=== PATIENT | female | born 1930 | race Caucasian/White ===

== ENCOUNTER 2017-07-24 18:15 | Emergency (ER) | payer MEDICARE, MEDICAID ==
--- NOTE | 2017-07-24 18:53 | Emergency Department Record ---
History of Present Illness - General Chief complaint: Facial Swelling Stated complaint: SWOLLEN TONGUE Time Seen by Provider: 07/24/17 18:49 Source: Patient Mode of Arrival: Ambulatory Limitations: No limitations - History of Present Illness Initial Comments: 87 yo female presents to ED for evaluation of tongue swelling for the past 6 hours. Patient reports taking Benadryl 90 minutes ago that has not significantly improved her symptoms. Patient denies previous reaction, denies any new foods or medications. Patient is not taking JAMES-I medications at her baseline. Patient denies throat swelling or difficulty swallowing on examination. MD Complaint: Other (tongue swelling) Onset/Timin -: Hour(s) Exposure: Unknown Symptoms: Orolingual swelling Severity: Mild Treatment Prior to Arrival: Benadryl Previous Allergy History: None - Related Data Previous Rx's Medication Instructions Recorded Famotidine [Pepcid] 40 mg PO DAILY #5 tablet 07/24/17 Prednisone [Prednisone 20Mg] 20 mg PO TID #12 tab 07/24/17 Allergies Allergy/AdvReac Type Severity Reaction Status Date / Time ibuprofen Allergy DIZZINESS Verified 07/24/17 18:37 Travel Screening - Travel/Exposure Within Last 30 Days Have you traveled within the last 30 days?: No - Travel/Exposure Within Last Year Have you traveled outside the [place] in the last year?: No - Additonal Travel Details Have you been exposed to anyone with a communicable illness?: No - Travel Symptoms Symptom Screening: None Review of Systems Constitutional: Denies: Chills, Fever, Malaise, Night sweats Eyes: Denies: Eye discharge, Eye pain ENT: Reports: Other (tongue swelling). Denies: Congestion, Ear pain, Epistaxis Cardiovascular: Denies: Chest pain, Dyspnea on exertion Endocrine: Denies: Fatigue, Heat or cold intolerance Gastrointestinal: Denies: Abdominal pain, Nausea, Vomiting Genitourinary: Denies: Incontinence, Retention Musculoskeletal: Denies: Arthralgia, Back pain, Gout, Joint swelling Skin: Denies: Bruising, Change in color Neurological: Denies: Abnormal gait, Confusion, Headache Psychiatric: Denies: Anxiety Hematological/Lymphatic: Denies: Anemia, Blood Clots Past Medical History - SOCIAL HISTORY Smoking Status: Never smoker Alcohol Use: None Drug Use: None - RESPIRATORY Hx Respiratory Disorders: No - CARDIOVASCULAR Hx Cardio Disorders: Yes Hx Abnormal EKG: Yes Hx Cardiac Cath: Yes - NEURO Hx Neuro Disorders: No - GI Hx GI Disorders: No - Hx Genitourinary Disorders: No - ENDOCRINE Hx Endocrine Disorders: No - MUSCULOSKELETAL Hx Musculoskeletal Disorders: Yes Hx Arthritis: Yes - PSYCH Hx Psych Problems: Yes Hx Anxiety: Yes Hx Depression: Yes - HEMATOLOGY/ONCOLOGY Hx Hematology/Oncology Disorders: No Hx Blood Transfusions: Yes Hx Blood Transfusion Reaction: Yes (itchy) Family Medical History Any Significant Family History?: Yes Hx Anxiety: Mother, Brother/Sister Physical Exam - General General Appearance: Alert, Oriented x3, Cooperative, Mild distress Limitations: No limitations - Head Head exam: Atraumatic, Normocephalic, Normal inspection Head exam detail: negative: Abrasion, Contusion, Hagan's sign, General tenderness, Hematoma, Laceration - Eye Eye exam: Normal appearance. negative: Conjunctival injection, Periorbital swelling, Periorbital tenderness, Scleral icterus - ENT Ear exam: negative: Auricular hematoma, Auricular trauma Nasal Exam: negative: Active bleeding, Discharge, Dried blood, Foreign body Mouth exam: Other (Mild, diffuse swelling to the tongue on examination). negative: Drooling, Laceration, Tongue elevation - Neck Neck exam: Normal inspection. negative: Meningismus, Tenderness - Respiratory Respiratory exam: Normal lung sounds bilaterally. negative: Respiratory distress, Rhonchi, Stridor, Wheezes - Cardiovascular Cardiovascular Exam: Regular rate, Normal rhythm, Normal heart sounds - GI/Abdominal GI/Abdominal exam: Soft. negative: Rebound, Rigid, Tenderness - Rectal Rectal exam: Deferred - exam: Deferred - Extremities Extremities exam: Normal inspection. negative: Pedal edema, Tenderness - Back Back exam: Denies: CVA tenderness (R), CVA tenderness (L) - Neurological Neurological exam: Alert, Normal gait, Oriented X3 - Psychiatric Psychiatric exam: Normal affect, Normal mood - Skin Skin exam: Normal color. negative: Abrasion Type of lesion: negative: abrasion Course Vital Signs 07/24/17 18:40 Temperature 97.5 F L Pulse Rate 90 Respiratory 20 Rate Blood Pressure 149/74 Pulse Ox 95 - Reevaluation(s) Reevaluation #1: 07/24/17 19:25 Patient reassessed, reports improvement in her symptoms. Will continue to observe in ED. Reevaluation #2: 07/24/17 20:45 Patient was reassessed, continues to improve (reports that her swelling is approximately 50% improved). Reevaluation #3: 07/24/17 21:02 Patient reports that her symptoms are nearly resolved, appears stable for discharge on prednisone and pepcid for recurrent symptoms. Patient appears stable for discharge at this time. Disposition Disposition: Discharge Clinical Impression: Tongue swelling Disposition: Home, Self-Care Condition: (2) Stable Instructions: Angioedema (ED) Additional Instructions: Return to ED if your symptoms worsen or if you have any concerns. Prednisone as directed. Follow-up with your family doctor in 1-3 days as directed. Prescriptions: Famotidine [Pepcid] 40 mg PO DAILY #5 tablet Prednisone [Prednisone 20Mg] 20 mg PO TID #12 tab Forms: Patient Portal Access Time of Disposition: 20:48 Quality - Quality Measures Quality Measures: N/A - Blood Pressure Screening Does Patient Have Any of the Following: No Blood Pressure Classification: Hypertensive Reading Systolic Measurement: 149 Diastolic Measurement: 74 Screening for High Blood Pressure: < First Hypertensive BP, F/U Documented > [ G8950] First Hypertensive Follow-up Interventions: Referral to alternative/primary care provider.
[2017-07-24] MEDS: FAMOTIDINE IV 20 MG/2 ML VIAL IVP ONE (19:11)
[2017-07-24] MEDS: METHYLPREDNISOLONE PF 125MG/VIAL IVP ONE (19:11)
== END 2017-07-24 21:11 | disposition home or self-care (01) ==
LOC: ER 18:15
DX: R22.0 Localized swelling, mass and lump, head (principal)
CPT/HCPCS: 96374; 96375; 99284; J2930; J3490

== ENCOUNTER 2018-02-12 09:14 | Emergency (ER) | payer MEDICARE, MEDICAID ==
[2018-02-12] MEDS ORDERED: ASPIRIN 81 MG CHEWABLE TABLET PO ONE (09:43)
--- NOTE | 2018-02-12 09:43 | Emergency Department Record ---
History of Present Illness - General Chief Complaint: Shortness of breath Stated Complaint: SOB/HEART RACING/LIGHT HEADED Time Seen by Provider: 02/12/18 09:35 Source: Patient, RN notes reviewed Mode of Arrival: Wheelchair - History of Present Illness Initial Comments: Patient states palpatations and she thinks her heart is going fast but the rate is 80 with occassional pvc's. PMH anxiety and no heart problems, Hypertension and was recently started on detrol for incontience of urine and her racing heart started after starting that 5 days ago and she called pharmacy and that was stopped two days ago. Panic attack per son Natanael. Onset/Timin -: Hour(s) Improves With: Nothing Worsens With: Nothing Context: Other Associated Symptoms: Other Treatments Prior to Arrival: None - Related Data Home Medications Medication Instructions Recorded Confirmed Last Taken Oxybutynin Chloride [Oxybutynin 1 tab PO ASDIR 02/12/18 02/12/18 02/10/18 Chloride ER] Simvastatin 20 mg PO QHS 02/12/18 02/12/18 02/11/18 Previous Rx's Medication Instructions Recorded Potassium Chloride [Klor-Con 10] 10 meq PO DAILY #7 tablet.er 02/12/18 Allergies Allergy/AdvReac Type Severity Reaction Status Date / Time ibuprofen Allergy DIZZINESS Verified 02/12/18 09:18 Travel Screening - Travel/Exposure Within Last 30 Days Have you traveled within the last 30 days?: No - Travel/Exposure Within Last Year Have you traveled outside the [place] in the last year?: No - Additonal Travel Details Have you been exposed to anyone with a communicable illness?: No - Travel Symptoms Symptom Screening: None Review of Systems Reviewed: No additional complaints except as noted below Constitutional: Reports: As per HPI. Denies: Chills, Fever, Malaise, Night sweats, Weakness, Weight change Eyes: Reports: As per HPI. Denies: Eye discharge, Eye pain, Photophobia, Vision change ENT: Reports: As per HPI. Denies: Congestion, Dental pain, Ear pain, Epistaxis , Hearing loss, Throat pain Respiratory: Reports: As per HPI. Denies: Cough, Dyspnea, Hemoptysis, Stridor, Wheezes Cardiovascular: Reports: As per HPI. Denies: Arrhythmia, Chest pain, Dyspnea on exertion, Edema, Murmurs, Orthopnea, Palpitations, Paroxysmal nocturnal dyspnea, Rheumatic Fever, Syncope Endocrine: Reports: As per HPI. Denies: Fatigue, Heat or cold intolerance, Polydipsia, Polyuria Gastrointestinal: Reports: As per HPI. Denies: Abdominal pain, Constipation, Diarrhea, Hematemesis, Hematochezia, Melena, Nausea, Vomiting Genitourinary: Reports: As per HPI. Denies: Abnormal menses, Discharge, Dyspareunia, Dysuria, Frequency, Hematuria, Incontinence, Retention, Urgency Musculoskeletal: Reports: As per HPI. Denies: Arthralgia, Back pain, Gout, Joint swelling, Myalgia, Neck pain Skin: Reports: As per HPI. Denies: Bruising, Change in color, Change in hair/ nails, Lesions, Pruritus, Rash Neurological: Reports: As per HPI. Denies: Abnormal gait, Confusion, Headache, Numbness, Paresthesias, Seizure, Tingling, Tremors, Vertigo, Weakness Psychiatric: Reports: As per HPI. Denies: Anxiety, Auditory hallucinations, Depression, Homicidal thoughts, Suicidal thoughts, Visual hallucinations Hematological/Lymphatic: Reports: As per HPI. Denies: Anemia, Blood Clots, Easy bleeding, Easy bruising, Swollen glands Past Medical History - SOCIAL HISTORY Smoking Status: Never smoker Alcohol Use: None Drug Use: None - RESPIRATORY Hx Respiratory Disorders: No - CARDIOVASCULAR Hx Cardio Disorders: Yes Hx Abnormal EKG: Yes Hx Cardiac Cath: Yes - NEURO Hx Neuro Disorders: No - GI Hx GI Disorders: No - Hx Genitourinary Disorders: No - ENDOCRINE Hx Endocrine Disorders: No - MUSCULOSKELETAL Hx Musculoskeletal Disorders: Yes Hx Arthritis: Yes - PSYCH Hx Psych Problems: Yes Hx Anxiety: Yes Hx Depression: Yes - HEMATOLOGY/ONCOLOGY Hx Hematology/Oncology Disorders: Yes Hx Blood Transfusions: Yes Hx Blood Transfusion Reaction: Yes (itchy) Family Medical History Any Significant Family History?: Yes Hx Anxiety: Mother, Brother/Sister Physical Exam - General General Appearance: Alert, Oriented x3, Cooperative, No acute distress - Head Head exam: Normal inspection - Eye Eye exam: Normal appearance, PERRL Pupils: Normal accommodation - ENT ENT exam: Normal exam, Mucous membranes moist, Normal external ear exam, Normal orophraynx, TM's normal bilaterally Ear exam: Normal external inspection. negative: External canal tenderness Nasal Exam: Normal inspection. negative: Discharge, Sinus tenderness Mouth exam: Normal external inspection, Tongue normal Teeth exam: Normal inspection. negative: Dental caries Throat exam: Normal inspection. negative: Tonsillar erythema, Tonsillar exudate - Neck Neck exam: Normal inspection, Full ROM. negative: Tenderness - Respiratory Respiratory exam: Normal lung sounds bilaterally. negative: Respiratory distress - Cardiovascular Cardiovascular Exam: Regular rate, Normal rhythm, Normal heart sounds - GI/Abdominal GI/Abdominal exam: Soft, Normal bowel sounds. negative: Tenderness - Rectal Rectal exam: Deferred - exam: Deferred - Extremities Extremities exam: Normal inspection, Full ROM, Normal capillary refill. negative: Tenderness - Back Back exam: Reports: Normal inspection, Full ROM. Denies: Muscle spasm, Rash noted, Tenderness - Neurological Neurological exam: Alert, Normal gait, Oriented X3, Reflexes normal - Psychiatric Psychiatric exam: Normal affect, Normal mood - Skin Skin exam: Dry, Intact, Normal color, Warm Course Vital Signs 02/12/18 09:22 Temperature 97.7 F Pulse Rate 79 Respiratory 20 Rate Blood Pressure 173/87 Pulse Ox 97 - Reevaluation(s) Reevaluation #1: patient is feeling better 02/12/18 12:48 Medical Decision Making - Data Complexity MDM Data: Labs Ordered and/or Reviewed (potasssium 2.9), X-Ray Ordered and/or Reviewed (copd, stipled metalic in neck, hiatal hernia streaky atelectasis vs infiltrate ), EKG Ordered and/or Reviewed (No acute changes with ) - Lab Data Result diagrams: 02/12/18 09:20 02/12/18 09:20 Disposition Clinical Impression: Heart palpitations, Hypokalemia Disposition: Home, Self-Care Condition: (1) Good Instructions: Heart Palpitations (ED), Hypokalemia (ED) Additional Instructions: follow up with family in 5 days Prescriptions: Potassium Chloride [Klor-Con 10] 10 meq PO DAILY #7 tablet.er Forms: Patient Portal Access Time of Disposition: 12:48 Quality - Quality Measures Quality Measures: N/A - Blood Pressure Screening Does Patient Have Any of the Following: No, Active Dx of HTN Blood Pressure Classification: Pre-Hypertensive BP Reading Systolic Measurement: 173 Diastolic Measurement: 87 Screening for High Blood Pressure: Patient Exclusion, Hx of HTN [G9744]
[2018-02-12] MEDS ORDERED: LORAZEPAM 0.5 MG TABLET PO ONE (09:47)
[2018-02-12 09:56] LABS: BASO % 0.6 % (0-6); EOS % 1.9 % (0-6); GRAN % 55.1 % (47-80); HEMATOCRIT 45.7 % (35.0-47.0); HEMOGLOBIN 15.7 gm/dl (11.6-16.0); LYMPH % 32.2 % (16-45); MEAN CELL VOLUME 90.1 fl (81-97); MEAN CORPUSCULAR HGB CONC 34.4 g/dl (32-36); MEAN PLATELET VOLUME 10.6 fl (7.4-10.4); MONO % 10.2 % (0-9); PLATELET COUNT 259 K/uL (130-400); RED BLOOD COUNT 5.07 M/uL (3.80-5.40)
[2018-02-12 10:08] LABS: BLOOD UREA NITROGEN 11 mg/dL (8-23); CREATININE 0.9 mg/dL (0.5-0.9); EST GLOMERULAR FILTRATION RATE > 60 mL/min
[2018-02-12 10:11] LABS: GLUCOSE,RANDOM 119 mg/dL (74-109)
[2018-02-12] MEDS ORDERED: POTASSIUM CHLORIDE 20 MEQ TABLET PO ONE (10:16)
== END 2018-02-12 13:08 | disposition home or self-care (01) ==
LOC: ER 09:14
DX: R00.2 Palpitations (principal); E87.6 Hypokalemia; R06.02 Shortness of breath; I10 Essential (primary) hypertension
CPT/HCPCS: 71046; 80048; 84484; 85025; 85730; 93005; 93010; 99284

== ENCOUNTER 2019-03-04 10:30 | Emergency (ER) | payer MEDICARE, MEDICAID ==
[2019-03-04 11:03] LABS: ABSOLUTE NEUTROPHIL COUNT 9.22; BASO % 0.1 % (0-6); EOS % 0.3 % (0-6); GRAN % 78.1 % (47-80); HEMATOCRIT 46.9 % (35.0-47.0); HEMOGLOBIN 15.8 gm/dl (11.6-16.0); LYMPH % 12.3 % (16-45); MEAN CELL VOLUME 90.5 fl (81-97); MEAN CORPUSCULAR HEMOGLOBIN 30.5 pg (27-33); MEAN CORPUSCULAR HGB CONC 33.7 g/dl (32-36); MEAN PLATELET VOLUME 10.1 fl (7.4-10.4); MONO % 9.2 % (0-9); PLATELET COUNT 237 K/uL (130-400); RED BLOOD COUNT 5.18 M/uL (3.80-5.40); RED CELL DISTRIBUTION WIDTH 15.3 % (11.5-14.5); WHITE BLOOD COUNT W/O DIFF 11.8 K/uL (4.2-12.2)
[2019-03-04] MEDS ORDERED: PREDNISONE 20 MG TAB PO ONE (11:29)
[2019-03-04] MEDS ORDERED: ACETAMINOPHEN 500 MG TABLET PO ONE (11:30)
--- NOTE | 2019-03-04 11:40 | Emergency Department Record ---
History of Present Illness - General Chief complaint: Extremity Problem Stated complaint: RIGHT WRIST PAIN Time Seen by Provider: 03/04/19 10:31 Source: Patient, RN notes reviewed Mode of Arrival: Wheelchair - History of Present Illness Initial comments: right wrist pain started 8 days ago with edema of the right wrist,no warmth and no redness Onset/Timin -: Hour(s) Location: Right, Hand, Other History of Same: No - Related Data Previous Rx's Medication Instructions Recorded Prednisone [Prednisone 10Mg] 10 mg PO ASDIR #30 tab 03/04/19 Allergies Allergy/AdvReac Type Severity Reaction Status Date / Time ibuprofen Allergy DIZZINESS Unverified 02/24/19 12:31 Travel Screening - Travel/Exposure Within Last 30 Days Have you traveled within the last 30 days?: No - Travel/Exposure Within Last Year Have you traveled outside the [place] in the last year?: No - Additonal Travel Details Have you been exposed to anyone with a communicable illness?: No - Travel Symptoms Symptom Screening: None Review of Systems Reviewed: No additional complaints except as noted below Constitutional: Reports: As per HPI. Denies: Chills, Fever, Malaise, Night sweats, Weakness, Weight change Eyes: Reports: As per HPI. Denies: Eye discharge, Eye pain, Photophobia, Vision change ENT: Reports: As per HPI. Denies: Congestion, Dental pain, Ear pain, Epistaxis, Hearing loss, Throat pain Respiratory: Reports: As per HPI. Denies: Cough, Dyspnea, Hemoptysis, Stridor, Wheezes Cardiovascular: Reports: As per HPI. Denies: Arrhythmia, Chest pain, Dyspnea on exertion, Edema, Murmurs, Orthopnea, Palpitations, Paroxysmal nocturnal dyspnea, Rheumatic Fever, Syncope Endocrine: Reports: As per HPI. Denies: Fatigue, Heat or cold intolerance, Polydipsia, Polyuria Gastrointestinal: Reports: As per HPI. Denies: Abdominal pain, Constipation, Diarrhea, Hematemesis, Hematochezia, Melena, Nausea, Vomiting Genitourinary: Reports: As per HPI. Denies: Abnormal menses, Discharge, Dyspareunia, Dysuria, Frequency, Hematuria, Incontinence, Retention, Urgency Musculoskeletal: Reports: As per HPI, Joint swelling. Denies: Arthralgia, Back pain, Gout, Myalgia, Neck pain Skin: Reports: As per HPI. Denies: Bruising, Change in color, Change in vang ir/nails, Lesions, Pruritus, Rash Neurological: Reports: As per HPI. Denies: Abnormal gait, Confusion, Headache, Numbness, Paresthesias, Seizure, Tingling, Tremors, Vertigo, Weakness Psychiatric: Reports: As per HPI. Denies: Anxiety, Auditory hallucinations, Depression, Homicidal thoughts, Suicidal thoughts, Visual hallucinations Hematological/Lymphatic: Reports: As per HPI. Denies: Anemia, Blood Clots, Easy bleeding, Easy bruising, Swollen glands Past Medical History - SOCIAL HISTORY Smoking Status: Never smoker Alcohol Use: None Drug Use: None - RESPIRATORY Hx Respiratory Disorders: No - CARDIOVASCULAR Hx Cardio Disorders: Yes Hx Abnormal EKG: Yes Hx Cardiac Cath: Yes - NEURO Hx Neuro Disorders: No - GI Hx GI Disorders: No - Hx Genitourinary Disorders: No - ENDOCRINE Hx Endocrine Disorders: No - MUSCULOSKELETAL Hx Musculoskeletal Disorders: Yes Hx Arthritis: Yes - PSYCH Hx Psych Problems: Yes Hx Anxiety: Yes Hx Depression: Yes - HEMATOLOGY/ONCOLOGY Hx Hematology/Oncology Disorders: Yes Hx Blood Transfusions: Yes Hx Blood Transfusion Reaction: Yes (itchy) Family Medical History Any Significant Family History?: No Hx Anxiety: Mother, Brother/Sister Physical Exam - General General Appearance: Alert, Oriented x3, Cooperative, Mild distress - Head Head exam: Normal inspection - Eye Eye exam: Normal appearance, PERRL Pupils: Normal accommodation - ENT ENT exam: Normal exam, Mucous membranes moist, Normal external ear exam, Normal orophraynx, TM's normal bilaterally Ear exam: Normal external inspection. negative: External canal tenderness Nasal Exam: Normal inspection. negative: Discharge, Sinus tenderness Mouth exam: Normal external inspection, Tongue normal Teeth exam: Normal inspection. negative: Dental caries Throat exam: Normal inspection. negative: Tonsillar erythema, Tonsillar exudate - Neck Neck exam: Normal inspection, Full ROM. negative: Tenderness - Respiratory Respiratory exam: Normal lung sounds bilaterally. negative: Respiratory distress - Cardiovascular Cardiovascular Exam: Regular rate, Normal rhythm, Normal heart sounds - GI/Abdominal GI/Abdominal exam: Soft, Normal bowel sounds. negative: Tenderness - Rectal Rectal exam: Deferred - exam: Deferred - Extremities Extremities exam: Normal inspection, Full ROM, Normal capillary refill, Tenderness (right wrist pain) - Back Back exam: Reports: Normal inspection, Full ROM. Denies: Muscle spasm, Rash noted, Tenderness - Neurological Neurological exam: Alert, Normal gait, Oriented X3, Reflexes normal - Psychiatric Psychiatric exam: Normal affect, Normal mood - Skin Skin exam: Dry, Intact, Normal color, Warm Course Vital Signs 03/04/19 10:40 Pulse Rate [ 69 Pulse Ox Probe] Respiratory 20 Rate Blood Pressure 112/83 [Left Arm] Pulse Ox 96 Medical Decision Making - Data Complexity MDM Data: Labs Ordered and/or Reviewed (crp up), X-Ray Ordered and/or Reviewed (neg for fractures) - Lab Data Result diagrams: 03/04/19 10:50 Lab Results 03/04/19 03/04/19 Range/Units 10:50 10:50 WBC 11.8 (4.2-12.2) K/uL RBC 5.18 (3.80-5.40) M/uL Hgb 15.8 (11.6-16.0) gm/dl Hct 46.9 (35.0-47.0) % MCV 90.5 (81-97) fl MCH 30.5 (27-33) pg MCHC 33.7 (32-36) g/dl RDW 15.3 H (11.5-14.5) % Plt Count 237 (130-400) K/uL MPV 10.1 (7.4-10.4) fl Gran % 78.1 (47-80) % Lymphocytes % 12.3 L (16-45) % Monocytes % 9.2 H (0-9) % Eosinophils % 0.3 (0-6) % Basophils % 0.1 (0-6) % Absolute Neutrophils 9.22 C-Reactive Protein 2.26 H (<0.5) mg/dL Disposition Clinical Impression: Arthritis Wrist pain Qualifiers: Laterality: right Qualified Code(s): M25.531 - Pain in right wrist Disposition: Home, Self-Care Condition: (1) Good Instructions: Osteoarthritis (ED) Additional Instructions: follow up with primary Dr in 5 days ago wear splint tylenol 325 mg one to two pills three times a day Prescriptions: Prednisone [Prednisone 10Mg] 10 mg PO ASDIR #30 tab Forms: Patient Portal Access Time of Disposition: 11:41 Quality - Quality Measures Quality Measures: N/A - Blood Pressure Screening Does Patient Have Any of the Following: No Blood Pressure Classification: Pre-Hypertensive BP Reading Systolic Measurement: 132 Diastolic Measurement: 60 Screening for High Blood Pressure: < Pre-Hypertensive BP, F/U Documented > [G8950] Pre-Hypertensive Follow-up Interventions: Referral to alternative/primary care provider.
--- NOTE | 2019-03-04 12:16 | RADIOLOGY REPORT ---
EXAMINATION: Right Wrist Complete, Minimum Three Views EXAM DATE: 03/04/2019 11:23 AM TECHNIQUE: PA, lateral, and oblique INDICATION: wrist pain COMPARISON: None ENCOUNTER: Initial FINDINGS: Diffuse osseous demineralization. Moderate osteoarthritis of the triscaphe joint. No fracture or disl ocation. IMPRESSION: No acute osseous abnormality. Dictated by: Jorge Oliveira MD on 03/04/2019 12:12 PM. .
== END 2019-03-04 12:30 | disposition home or self-care (01) ==
LOC: ER 10:30
DX: M19.031 Primary osteoarthritis, right wrist (principal)
CPT/HCPCS: 85025; 86140; 99284; J7512